=== PATIENT | female | born 1970 | race Caucasian/White ===

== ENCOUNTER 2018-11-17 09:23 | Emergency (ER) | payer MEDICAID ==
--- NOTE | 2018-11-17 09:53 | EDM.PDOC ---
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 She took hot bath and took aleve and when she woke up this AM she had increase in pain and spasms to the area. She states that she has had some issues with this in the past with muscle spasms. She denies any specific injury. This morning she had increase in pain with getting out of bed as she would have spasms to the right thoracic back. She states that when the pain is bad it will radiate down into her buttock area down into her leg. She denies any numbness or tingling. No loss of strength to the area. Onset: Gradual Location: Reports: Back Quality: Reports: Sharp Severity: Moderate Improves with: Reports: Rest Worsens with: Reports: Movement Associated Symptoms: Reports: No Other Symptoms Right Lower Back Pain Score (Numeric/FACES): 7 - Related Data Allergies Allergy/AdvReac Type Severity Reaction Status Date / Time pollen extracts Allergy Itching Verified 11/17/18 09:31 Home Meds: Home Meds . [No Known Home Meds] 11/17/18 [History] Past Medical History - Past Surgical History Cardiovascular Surgical History: Reports: Other (See Below) Other Cardiovascular Surgeries/Procedures: stent GI Surgical History: Reports: Appendectomy, Cholecystectomy Female Surgical History: Reports: Section Social & Family History - Family History Family Medical History: Noncontributory - Tobacco Use Smoking Status *Q: Current Every Day Smoker Years of Tobacco use: 6 Packs/Tins Daily: 0.5 - Caffeine Use Caffeine Use: Reports: Coffee - Recreational Drug Use Recreational Drug Use: No ED ROS GENERAL - Review of Systems Review Of Systems: See Below Constitutional: Reports: No Symptoms Respiratory: Reports: No Symptoms Cardiovascular: Reports: No Symptoms GI/Abdominal: Reports: No Symptoms : Reports: No Symptoms Musculoskeletal: Reports: Back Pain Skin: Denies: Bruising, Erythema ED EXAM, GENERAL - Physical Exam Exam: See Below Exam Limited By: No Limitations General Appearance: Alert, WD/WN, Moderate Distress Ears: Normal External Exam, Normal Canal, Normal TMs Head: Atraumatic, Normocephalic Neck: Normal Inspection, Supple, Non-Tender Respiratory/Chest: No Respiratory Distress, Lungs Clear Cardiovascular: Regular Rate, Rhythm, No Edema Back Exam: Normal Inspection, Decreased Range of Motion (with flexion. Is able to bend side to side without increase in discomfort. Can extend back without increase in pain.), Paraspinal Tenderness (to the right thoracic area noted.) Extremities: Normal Range of Motion (good strength noted to the lower extremities against resistance bilaterally. No increase in back pain with leg lifts.), No Pedal Edema Neurological: Alert, Oriented Skin Exam: Warm, Dry Course - Vital Signs Last Recorded V/S: Last Vital Signs Temp 97.6 F 11/17/18 09:27 Pulse 84 11/17/18 09:27 Resp 16 11/17/18 09:27 BP 122/70 11/17/18 09:27 Pulse Ox 100 11/17/18 09:27 Departure - Departure Time of Disposition: 09:45 Disposition: Home, Self-Care 01 Condition: Good Clinical Impression: Muscle spasm of back - Discharge Information *PRESCRIPTION DRUG MONITORING PROGRAM REVIEWED*: Not Applicable *COPY OF PRESCRIPTION DRUG MONITORING REPORT IN PATIENT ROLAND: Not Applicable Instructions: Muscle Cramps and Spasms, [id number] Forms: ED Department Discharge Additional Instructions: Prednisone 40 mg daily for 5 days flexeril 10 mg twice as day as needed for muscle spasms after prednisone is done then start mobic daily until pain is gone. return to work. - Problem List & Annotations (1) Muscle spasm of back SNOMED Code(s): 132218617 Code(s): M62.830 - MUSCLE SPASM OF BACK Status: Acute Priority: High - Problem List Review Problem List Initiated/Reviewed/Updated: Yes
== END 2018-11-17 10:02 | disposition home or self-care (01) ==
LOC: CC.ED 09:23
DX: M62.830 Muscle spasm of back (principal); F17.210 Nicotine dependence, cigarettes, uncomplicated; Z91.048 Other nonmedicinal substance allergy status; Z90.49 Acquired absence of other specified parts of digestive tract
CPT/HCPCS: 99283

== ENCOUNTER 2019-03-03 15:43 | Emergency (ER) | payer MEDICAID ==
[2019-03-03] MEDS ORDERED: Meclizine 12.5 MG Tab ONE ×2 (15:44→16:23)
[2019-03-03] MEDS ORDERED: Meclizine 12.5 MG Tab PO ONE (16:08)
--- NOTE | 2019-03-03 16:24 | EDM.PDOC ---
ED HPI GENERAL MEDICAL PROBLEM - General Chief Complaint: General Stated Complaint: NAUSEA/DIZZY Time Seen by Provider: 03/03/19 15:45 Source of Information: Reports: Patient History Limitations: Reports: No Limitations - History of Present Illness INITIAL COMMENTS - FREE TEXT/NARRATIVE: Patient to the emergency department complaint of sudden onset of dizziness. The patient does have a history of vertigo and she advised that these are similar symptoms. The patient advised that she feels as if she is still in the room is spinning around her. There is no other change in vision, there is no ear pain there is no runny nose or congestion there is no throat pain there is no unusual neck, back pain or stiffness there is no chest pain, pressure, heaviness, there is no palpitations or irregular heartbeat there is no shortness of breath there is no abdominal pain there is nausea she did vomit once there is no diarrhea no constipation and no rash. Denies any other symptoms Onset: Today, Sudden Duration: Minutes: Location: Reports: Head Severity: Moderate Improves with: Reports: None Worsens with: Reports: None Associated Symptoms: Reports: Cough. 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 [No Known Home Meds] 11/17/18 [History] Past Medical History - Past Surgical History Cardiovascular Surgical History: Reports: Other (See Below) Other Cardiovascular Surgeries/Procedures: stent GI Surgical History: Reports: Appendectomy, Cholecystectomy Female Surgical History: Reports: Section Social & Family History - Family History Family Medical History: Noncontributory - Tobacco Use Smoking Status *Q: Current Every Day Smoker Years of Tobacco use: 7 Packs/Tins Daily: 1 - Caffeine Use Caffeine Use: Reports: Coffee - Recreational Drug Use Recreational Drug Use: No ED ROS GENERAL - Review of Systems Review Of Systems: See Below Constitutional: Reports: No Symptoms. Denies: Fever, Chills, Weakness HEENT: Reports: No Symptoms. Denies: Ear Pain, Nose Pain, Throat Pain Respiratory: Reports: No Symptoms. Denies: Shortness of Breath, Wheezing Cardiovascular: Reports: No Symptoms. Denies: Chest Pain, Palpitations Endocrine: Reports: No Symptoms GI/Abdominal: Reports: Nausea, Vomiting. Denies: Abdominal Pain : Reports: No Symptoms Musculoskeletal: Reports: No Symptoms. Denies: Neck Pain, Back Pain Skin: Reports: No Symptoms. Denies: Bruising, Rash, Erythema Neurological: Reports: Dizziness. Denies: Headache, Syncope, Trouble Speaking, Difficulty Walking, Change in Speech, Gait Disturbance Psychiatric: Reports: No Symptoms ED EXAM, GENERAL - Physical Exam Exam: See Below Exam Limited By: No Limitations General Appearance: Alert, WD/WN, No Apparent Distress Eye Exam: Bilateral Eye: EOMI Ear Exam: Bilateral Ear: Auricle Normal, Canal Normal, TM normal Nose: Normal Inspection, Normal Mucosa Throat/Mouth: Normal Inspection, Normal Lips, Normal Teeth, Normal Voice, No Airway Compromise Head: Atraumatic, Normocephalic Neck: Normal Inspection, Supple, Non-Tender, Full Range of Motion Respiratory/Chest: Lungs Clear, Normal Breath Sounds, Chest Non-Tender Cardiovascular: Normal Peripheral Pulses, Regular Rate, Rhythm, No Murmur Peripheral Pulses: 2+: Radial (L), Radial (R) GI/Abdominal: Soft, Non-Tender Back Exam: Normal Inspection, Full Range of Motion Extremities: Normal Inspection, Normal Range of Motion, Non-Tender, Normal Capillary Refill Neurological: Alert, Oriented, CN II-XII Intact, Normal Cognition, Normal Gait, No Motor/Sensory Deficits Psychiatric: Normal Affect, Normal Mood Skin Exam: Warm, Dry, Intact, Normal Color Course - Vital Signs Text/Narrative:: 1623 the patient was evaluated in the emergency department, as the patient advises these symptoms are very similar and unchanged from her previous episodes of vertigo, the patient will be given Antivert 50 mg p.o. and then she will be reassessed for disposition. 1719 The patient was evaluated in the emergency department, the patient was given Antivert 50 mg p.o. x1 dose. The symptoms at this point is completely resolved. The patient be discharged with Antivert 25 mg 3 times daily as needed #20 she is also advised to follow-up with the family doctor this coming week for further evaluation and treatment and referral to an drying machine back tender for evaluation of the vertigo. The patient is to return back to the emergency department sooner if worse or any problems Last Recorded V/S: Last Vital Signs Temp 36.9 C 03/03/19 15:52 Pulse 77 03/03/19 16:00 Resp 18 03/03/19 16:00 BP 105/65 03/03/19 16:00 Pulse Ox 98 03/03/19 16:00 Orthostatic Blood Pressure [] 105/69 Orthostatic Blood Pressure [] 103/63 Orthostatic Blood Pressure [] 105/65 - Orders/Labs/Meds Meds: Medications Discontinued Medications Generic Name Dose Route Start Last Admin Trade Name Usama PRN Reason Stop Dose Admin Meclizine HCl Confirm 03/03/19 15:44 03/03/19 16:10 Antivert Administered 03/03/19 15:45 Not Given Dose 50 mg .ROUTE .STK-MED ONE Meclizine HCl 50 mg 03/03/19 16:08 03/03/19 16:09 Antivert PO 03/03/19 16:09 50 mg ONETIME ONE Administration Meclizine HCl Confirm 03/03/19 16:23 03/03/19 17:07 Antivert Administered 03/03/19 16:24 Not Given Dose 12.5 mg .ROUTE .STK-MED ONE Departure - Departure Time of Disposition: 17:19 Disposition: Home, Self-Care 01 Condition: Good Clinical Impression: Vertigo - Discharge Information *PRESCRIPTION DRUG MONITORING PROGRAM REVIEWED*: Not Applicable *COPY OF PRESCRIPTION DRUG MONITORING REPORT IN PATIENT ROLAND: Not Applicable Instructions: Vertigo, [id number] Forms: ED Department Discharge Additional Instructions: Rest Antivert 25 mg 3 times a day as needed for dizziness Follow-up this week with your family doctor this coming we for further evaluation and treatment and referral to an drying machine back tender Return to emergency department sooner if worse or any problems Sepsis Event Note - Evaluation Sepsis Screening Result: No Definite Risk - Focused Exam Vital Signs: Vital Signs Temp Pulse Resp BP Pulse Ox 03/03/19 16:00 77 18 105/65 98 03/03/19 15:52 36.9 C 93 18 111/71 100 Date Exam was Performed: 03/03/19 Time Exam was Performed: 17:18 - Problem List & Annotations (1) Vertigo SNOMED Code(s): 719665347 Code(s): R42 - DIZZINESS AND GIDDINESS Status: Acute Priority: High - Problem List Review Problem List Initiated/Reviewed/Updated: Yes - Assessment/Plan Plan: As above
== END 2019-03-03 17:26 | disposition home or self-care (01) ==
LOC: CC.ED 15:43
DX: R42 Dizziness and giddiness (principal); F17.210 Nicotine dependence, cigarettes, uncomplicated; Z91.048 Other nonmedicinal substance allergy status
CPT/HCPCS: 99283; A9270-GY

== ENCOUNTER 2020-10-16 12:17 | Emergency (ER) | payer MEDICAID ==
[2020-10-16 12:57] LABS: PTT,PARTIAL THROMBOPLSTIN TIME 24.5 SEC (23.2-32.3)
[2020-10-16 13:01] LABS: CHLORIDE,CL 105 mEq/L (98-106); SODIUM,NA 140 mEq/L (136-145)
--- NOTE | 2020-10-16 13:02 | EDM.PDOC ---
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 This started last evening aabout 10 when she was going up the stairs. She laid down after that and the pressure never went away. She did feel some nausea with it. Does have a cough at times. She does smoke a pack a day and has for 5 years. Occasionally will have edema but she has not had any for "awhile". She states that she continued to have the chest pressure when she woke up this AM and difficulty catching her breathe is still there. Feels that it is constant and doesn't improve with rest even this AM. Has not become worse since starting last evening. Nothing she has done has changed the discomfort She states that she did have a stent in her LAD 10 years ago. She was supposed to be on some meds after but 4-5 years ago she stopped them as she did not have any insurance. Can't remember what they were for. Onset Date: 10/15/20 Onset Time: 22:00 Location: Reports: Chest Chest Pain Score (Numeric/FACES): 4 - Related Data Allergies Allergy/AdvReac Type Severity Reaction Status Date / Time pollen extracts Allergy Itching Verified 03/03/19 16:14 Home Meds: Home Meds . [No Known Home Meds] 11/17/18 [History] Past Medical History Cardiovascular History: Reports: Stents Neurological History: Reports: Vertigo - Past Surgical History Cardiovascular Surgical History: Reports: Other (See Below) Other Cardiovascular Surgeries/Procedures: stent GI Surgical History: Reports: Appendectomy, Cholecystectomy Female Surgical History: Reports: Section Social & Family History - Family History Family Medical History: No Pertinent Family History - Caffeine Use Caffeine Use: Reports: Coffee ED ROS GENERAL - Review of Systems Review Of Systems: See Below Constitutional: Denies: Fever, Chills HEENT: Reports: No Symptoms Respiratory: Reports: Shortness of Breath, Cough Cardiovascular: Reports: No Symptoms, Chest Pain, Dyspnea on Exertion. Denies: Edema GI/Abdominal: Reports: No Symptoms Musculoskeletal: Reports: No Symptoms Skin: Reports: No Symptoms Neurological: Reports: No Symptoms ED EXAM, GENERAL - Physical Exam Exam: See Below Exam Limited By: No Limitations General Appearance: Alert, WD/WN Ears: Normal External Exam, Normal Canal, Normal TMs Throat/Mouth: Normal Inspection, Normal Oropharynx, Normal Voice Head: Atraumatic, Normocephalic Neck: Normal Inspection, Supple, Non-Tender, Full Range of Motion Respiratory/Chest: No Respiratory Distress, Lungs Clear, Chest Non-Tender, Other (Not able to make the chest discomfort worse with palpation or position changes.). No: Respiratory Distress Cardiovascular: Normal Peripheral Pulses, Regular Rate, Rhythm, No Edema GI/Abdominal: Normal Bowel Sounds, Soft, Non-Tender Back Exam: Normal Inspection Extremities: Normal Inspection, No Pedal Edema, Normal Capillary Refill Neurological: Alert, Oriented Skin Exam: Warm, Dry, Intact #1 Interpretation Rhythm: NSR P-Wave: Present QRS: Normal ST-T: Normal QT: Normal Comparison: NA - No Prior EKG Course - Vital Signs Last Recorded V/S: Last Vital Signs Temp 97.5 F 10/16/20 12:25 Pulse 81 10/16/20 13:04 Resp 16 10/16/20 12:25 BP 136/92 H 10/16/20 13:04 Pulse Ox 94 L 10/16/20 12:25 - Orders/Labs/Meds Orders: Active Orders 24 hr Category Date Time Status Chest 2V [CR] Routine Exams 10/16/20 Taken Labs: Laboratory Tests 10/16/20 10/16/20 10/16/20 Range/Units 12:41 12:41 12:41 WBC 9.7 (4.0-11.0) 10^3/uL RBC 4.85 (4.00-5.50) x10^6/uL Hgb 14.1 (12.0-16.0) g/dL Hct 43.1 (37.0-47.0) % MCV 88.9 (83.0-97.0) fL MCH 29.1 (27.0-32.0) pg MCHC 32.7 (32.0-36.0) g/dL RDW Coeff of Nima 14.6 (11.0-15.0) % Plt Count 271 (150-400) 10^3/uL Immature Gran % (Auto) 0.2 (0.0-4.9) % Neut % (Auto) 77.1 H (41-71) % Lymph % (Auto) 17.3 L (24-44) % Assumption % (Auto) 3.8 (0-10) % Eos % (Auto) 1.3 (0-6) % Baso % (Auto) 0.3 (0-1) % Neut # (Auto) 7.49 (1.80-8.00) x10^3/uL Lymph # (Auto) 1.68 (0.60-5.00) 10^3/uL Assumption # (Auto) 0.37 (0.00-1.50) 10^3/uL Eos # (Auto) 0.13 (0.00-1.50) 10^3/uL Baso # (Auto) 0.03 (0.00-0.50) 10^3/uL Immature Gran # (Auto) 0.02 (0.00-0.49) 10^3/uL PT 10.8 (9.7-12.3) SEC INR 0.99 (0.92-1.18) APTT 24.5 (23.2-32.3) SEC D-Dimer, Quantitative (0.00-0.50) Sodium 140 (136-145) mEq/L Potassium 4.3 (3.5-5.0) mEq/L Chloride 105 (98-106) mEq/L Carbon Dioxide 27 (21-32) mmol/L BUN 13 (7-18) mg/dL Creatinine 1.0 (0.6-1.0) mg/dL Est Cr Clr Drug Dosing 49.42 mL/min Estimated GFR (MDRD) 59 L (>=60) mL/min Glucose 98 (75-99) mg/dL Calcium 9.0 (8.4-10.1) mg/dL Total Bilirubin 0.5 (0.0-1.0) mg/dL AST 12 L (15-37) U/L ALT 13 (12-78) U/L Alkaline Phosphatase 72 (46-116) U/L Lactate Dehydrogenase 214 H (100-190) U/L Creatine Kinase 31 (21-215) U/L Troponin I < 0.017 (0.00-0.06) ng/mL Total Protein 7.8 (6.4-8.2) g/dL Albumin 3.8 (3.4-5.0) g/dL Lipase 52 L (73-393) U/L 10/16/20 Range/Units 13:00 WBC (4.0-11.0) 10^3/uL RBC (4.00-5.50) x10^6/uL Hgb (12.0-16.0) g/dL Hct (37.0-47.0) % MCV (83.0-97.0) fL MCH (27.0-32.0) pg MCHC (32.0-36.0) g/dL RDW Coeff of Nima (11.0-15.0) % Plt Count (150-400) 10^3/uL Immature Gran % (Auto) (0.0-4.9) % Neut % (Auto) (41-71) % Lymph % (Auto) (24-44) % Assumption % (Auto) (0-10) % Eos % (Auto) (0-6) % Baso % (Auto) (0-1) % Neut # (Auto) (1.80-8.00) x10^3/uL Lymph # (Auto) (0.60-5.00) 10^3/uL Assumption # (Auto) (0.00-1.50) 10^3/uL Eos # (Auto) (0.00-1.50) 10^3/uL Baso # (Auto) (0.00-0.50) 10^3/uL Immature Gran # (Auto) (0.00-0.49) 10^3/uL PT (9.7-12.3) SEC INR (0.92-1.18) APTT (23.2-32.3) SEC D-Dimer, Quantitative 0.61 H (0.00-0.50) Sodium (136-145) mEq/L Potassium (3.5-5.0) mEq/L Chloride (98-106) mEq/L Carbon Dioxide (21-32) mmol/L BUN (7-18) mg/dL Creatinine (0.6-1.0) mg/dL Est Cr Clr Drug Dosing mL/min Estimated GFR (MDRD) (>=60) mL/min Glucose (75-99) mg/dL Calcium (8.4-10.1) mg/dL Total Bilirubin (0.0-1.0) mg/dL AST (15-37) U/L ALT (12-78) U/L Alkaline Phosphatase (46-116) U/L Lactate Dehydrogenase (100-190) U/L Creatine Kinase (21-215) U/L Troponin I (0.00-0.06) ng/mL Total Protein (6.4-8.2) g/dL Albumin (3.4-5.0) g/dL Lipase (73-393) U/L Meds: Medications Discontinued Medications Generic Name Dose Route Start Last Admin Trade Name Freq PRN Reason Stop Dose Admin Aspirin 324 mg 10/16/20 13:12 10/16/20 13:04 Aspirin 81 Mg Tab.Chew PO 10/16/20 13:13 324 mg ONETIME ONE Administration Nitroglycerin 0.4 mg 10/16/20 13:12 10/16/20 13:04 Nitroglycerin 0.4 Mg Tab.Sl SL 0.4 mg Q5M PRN Administration Chest Pain - Re-Assessments/Exams Free Text/Narrative Re-Assessment/Exam: 10/16/20 13:31 Discussed labs and EKG and CXr. No acute changes on in labs or EKG at this time. Due to the history of stent placement 10 years ago I do feel that she needs further workup to include a cardiolyte stress test as I don't think she can walk long enough to do standard andrez stress on her. She is in agreement to do this and is scheduled for tomorrow at noon. I advised to rest and no work until that can be evaluated. Departure - Departure Time of Disposition: 13:27 Disposition: Home, Self-Care 01 Condition: Good Clinical Impression: Angina pectoris Instructions: Angina Referrals: PCP,Unknown [Primary Care Provider] - Forms: ED Department Discharge Additional Instructions: cardiolyte stress test at 12 noon tomorrow. Please follow the instructions that were given. Arrive a few minutes early to register rest today and do not do any stairs or lifting If the discomfort returns then you need to return to the ER. If any questions then call the ER Sepsis Event Note (ED) - Focused Exam Vital Signs: Vital Signs Temp Pulse Pulse Resp BP BP Pulse Ox 10/16/20 13:04 81 136/92 H 10/16/20 12:25 97.5 F 81 16 136/92 H 94 L 10/16/20 12:20 97.5 F 81 16 136/92 H 94 L - Problem List & Annotations (1) Angina pectoris SNOMED Code(s): 019373545 Code(s): I20.9 - ANGINA PECTORIS, UNSPECIFIED Status: Acute - Problem List Review Problem List Initiated/Reviewed/Updated: Yes - My Orders Last 24 Hours: My Active Orders 10/16/20 Chest 2V [CR] Routine - Assessment/Plan Last 24 Hours: My Active Orders 10/16/20 Chest 2V [CR] Routine
[2020-10-16] MEDS: Aspirin 81 MG Tab.Chew PO ONE (13:04)
[2020-10-16] MEDS: Nitroglycerin 0.4 MG Tab.SL SL PRN (13:04)
== END 2020-10-16 13:35 | disposition home or self-care (01) ==
LOC: CC.ED 12:17
DX: I20.9 Angina pectoris, unspecified (principal); Z91.09 Other allergy status, other than to drugs and biological substances
CPT/HCPCS: 36415; 71046; 80053; 82550; 83615; 83690; 84484; 85025; 85379; 85610; 85730; 93005; 99285; A9270

== ENCOUNTER 2021-08-10 18:15 | Emergency (ER) | payer MEDICAID ==
[2021-08-10] MEDS ORDERED: Ketorolac 30 MG/ML SDV IM ONE (18:59)
== END 2021-08-10 20:15 | disposition home or self-care (01) ==
LOC: CC.ED 18:15
DX: S93.401A Sprain of unspecified ligament of right ankle, initial encounter (principal); F17.210 Nicotine dependence, cigarettes, uncomplicated; Z91.048 Other nonmedicinal substance allergy status; X50.1XXA Overexertion from prolonged static or awkward postures, initial encounter
CPT/HCPCS: 73610-LT; 96372; 99283; J1885

== ENCOUNTER 2022-02-28 15:02 | Emergency (ER) | payer MEDICAID, OTHER ==
[2022-02-28] MEDS: Ketorolac 30 MG/ML SDV IM ONE (15:21)
== END 2022-02-28 15:30 | disposition home or self-care (01) ==
LOC: CC.ED 15:02
DX: M25.552 Pain in left hip (principal); Z72.0 Tobacco use; Z91.048 Other nonmedicinal substance allergy status; W00.0XXA Fall on same level due to ice and snow, initial encounter
CPT/HCPCS: 96372; 99283; J1885

== ENCOUNTER 2022-05-23 13:30 | Emergency (ER) | payer MEDICAID ==
[2022-05-23 14:26] LABS: PTT,PARTIAL THROMBOPLSTIN TIME 25.4 SEC (20.0-30.0)
== END 2022-05-23 14:45 | disposition home or self-care (01) ==
LOC: CC.ED 13:45
DX: M94.0 Chondrocostal junction syndrome [Tietze] (principal); Z91.048 Other nonmedicinal substance allergy status; Z20.822 Contact with and (suspected) exposure to COVID-19
CPT/HCPCS: 36415; 71046; 80053; 83690; 83735; 84484; 85025; 85610; 85730; 87804; 93005; 93010; 99284; 99285; U0002

== ENCOUNTER 2023-10-30 19:20 | Emergency (ER) | payer SELFPAY | END 2023-10-30 20:00 | disposition home or self-care (01) | LOC: CC.ED 19:20 | DX: S93.402A Sprain of unspecified ligament of left ankle, initial encounter (principal); F17.210 Nicotine dependence, cigarettes, uncomplicated; Z91.048 Other nonmedicinal substance allergy status; Z79.82 Long term (current) use of aspirin; Z79.899 Other long term (current) drug therapy; Z90.49 Acquired absence of other specified parts of digestive tract; X50.1XXA Overexertion from prolonged static or awkward postures, initial encounter | CPT/HCPCS: 73610-LT; 99283 ==

== ENCOUNTER 2024-05-31 01:06 | Emergency (ER) | payer OTHER ==
[2024-05-31 01:11] VITALS: BP 148/93; PULSE 88
[2024-05-31] MEDS: Lidocaine 1% 30 ML SDV INJECT ONE (01:28)
[2024-05-31] MEDS: Lidocaine 1% 5 ML VIAL INJECT ONE (01:29)
[2024-05-31] MEDS: Lidocaine 1% 30 ML SDV ONE (01:31)
[2024-05-31] MEDS: Bacitracin/Neomycin/Polymyxin B Oint 0.9 GM U/D Packet TOP ONE (01:34)
== END 2024-05-31 02:05 | disposition home or self-care (01) ==
LOC: CC.ED 01:06
DX: S61.211A Laceration without foreign body of left index finger without damage to nail, initial encounter (principal); Z91.048 Other nonmedicinal substance allergy status; Z79.899 Other long term (current) drug therapy; Z79.1 Long term (current) use of non-steroidal anti-inflammatories (NSAID); Z79.82 Long term (current) use of aspirin; Z90.49 Acquired absence of other specified parts of digestive tract; W26.8XXA Contact with other sharp object(s), not elsewhere classified, initial encounter; Y99.0 Civilian activity done for income or pay
CPT/HCPCS: 12001; 99282; A9270-GY; J3490

== ENCOUNTER 2024-06-10 14:24 | Emergency (ER) | payer SELFPAY ==
[2024-06-10] MEDS: Ketorolac 30 MG/ML SDV IM ONE (14:43)
[2024-06-10] MEDS: Take Home: predniSONE 20 MG, 2 Tab Pack PO ONE (14:51)
[2024-06-10] MEDS: Take Home: Cyclobenzaprine 10 MG Tab, 4 Tab Pack PO ONE (14:51)
== END 2024-06-10 15:03 | disposition home or self-care (01) ==
LOC: CC.ED 14:24
DX: M54.42 Lumbago with sciatica, left side (principal); Z91.048 Other nonmedicinal substance allergy status; Z79.899 Other long term (current) drug therapy; Z79.1 Long term (current) use of non-steroidal anti-inflammatories (NSAID); Z79.82 Long term (current) use of aspirin; Z90.49 Acquired absence of other specified parts of digestive tract
CPT/HCPCS: 96372; 99283; A9270; J1885; J7512; 99284

== ENCOUNTER 2024-06-13 18:00 | Emergency (ER) | payer SELFPAY ==
[2024-06-13] MEDS: Ketorolac 30 MG/ML SDV IM ONE (18:32)
[2024-06-13] MEDS: Orphenadrine 60 MG/2 ML Inj IM ONE (18:33)
== END 2024-06-13 18:57 | disposition home or self-care (01) ==
LOC: CC.ED 18:00
DX: M54.50 Low back pain, unspecified (principal); Z88.8 Allergy status to other drugs, medicaments and biological substances; Z79.899 Other long term (current) drug therapy; Z79.82 Long term (current) use of aspirin; Z90.49 Acquired absence of other specified parts of digestive tract; F17.210 Nicotine dependence, cigarettes, uncomplicated
CPT/HCPCS: 96372; 99283; J1885; J2360

== ENCOUNTER 2024-06-18 04:38 | Emergency (ER) | payer SELFPAY ==
[2024-06-18] MEDS: Orphenadrine 60 MG/2 ML Inj IV ONE (05:54)
[2024-06-18] MEDS: Lidocaine 4% Patch TOP STA (07:50)
== END 2024-06-18 08:20 | disposition home or self-care (01) ==
LOC: CC.ED 04:38
DX: S39.012A Strain of muscle, fascia and tendon of lower back, initial encounter (principal); S70.02XA Contusion of left hip, initial encounter; F17.210 Nicotine dependence, cigarettes, uncomplicated; Z91.048 Other nonmedicinal substance allergy status; Z79.899 Other long term (current) drug therapy; Z79.82 Long term (current) use of aspirin; Z79.1 Long term (current) use of non-steroidal anti-inflammatories (NSAID); Z90.49 Acquired absence of other specified parts of digestive tract; W01.0XXA Fall on same level from slipping, tripping and stumbling without subsequent striking against object, initial encounter
CPT/HCPCS: 72128; 72131; 96374; 99284-25; A9270-GY; J2360